=== PATIENT | male | born 1945 | race Hispanic/Latino ===

== ENCOUNTER 2018-04-10 14:36 | Inpatient (IN) | payer MEDICARE ==
[~2018-04-10 14:36] MED LIST: Heparin25000 units/250ml 0.45% NS BAG IV ONE
[2018-04-10 14:43] VITALS: BMI 30.1
[2018-04-10] MEDS ORDERED: Metoprolol Succinate 50 mg XL Tab PO STA (14:48)
--- NOTE | 2018-04-10 14:56 | C.PDOC ---
History Of Present Illness 72 year old male with a Hx of STEMI and HTN presents to the ER with a complaint of chest pain that began while he was getting his haircut. Patient left the [employer] and walked 4 blocks to his house where he took 8-10 81mg aspirin. The pain persisted so he went down and told people outside who called EMS. Patient was placed on a monitor by EMs and found to have an STEMI on his EKG which was faxed to me at 1425, Dr. Richards paged at 1427, patient arrived at 1437. Repeat EKG showed STEMI. Patient still with ongoing chest pain, Dr. lisa rodriguez. Time Seen by Provider: 04/10/18 14:45 Chief Complaint (Nursing): Chest Pain History Per: Patient History/Exam Limitations: no limitations Onset/Duration Of Symptoms: Hrs Current Symptoms Are (Timing): Still Present Associated Symptoms: denies: Nausea, Dyspnea, Diaphoresis, Syncope Modifying Factors: None Exacerbating Factors: None Alleviating Factors: None Recent travel outside of the [place]: No Past Medical History Reviewed: Historical Data, Nursing Documentation, Vital Signs - Medical History PMH: HTN Family History: States: Unknown Family Hx - Social History Hx Alcohol Use: No Hx Substance Use: No - Immunization History Hx Tetanus Toxoid Vaccination: No Hx Influenza Vaccination: No Hx Pneumococcal Vaccination: No Review Of Systems Except As Marked, All Systems Reviewed And Found Negative. Cardiovascular: Positive for: Chest Pain Physical Exam - Physical Exam Appears: Non-toxic Skin: Normal Color, Warm, Dry Head: Atraumatic, Normacephalic Eye(s): bilateral: Normal Inspection Oral Mucosa: Moist Neck: Normal, Supple Chest: Symmetrical, No Tenderness Cardiovascular: Rhythm Regular Respiratory: Normal Breath Sounds, No Rales, No Rhonchi, No Wheezing Gastrointestinal/Abdominal: Soft, No Tenderness Back: No CVA Tenderness Extremity: Normal ROM (x4) Neurological/Psych: Oriented x3, Normal Speech ED Course And Treatment ECG: Interpreted By Me, Viewed By Me ECG Rhythm: Sinus Rhythm ECG Interpretation: Normal Interpretation Of ECG: Normal intervals, normal axis, ST elevation at leads 2 3 avl with reciprocal at 2 3 4 consistent with inferior wall UT. Rate From EC Medical Decision Making Medical Decision Making: Crestor, heparin, and metoprolol administered as per Dr. Richards request. patient transferred to electroplating laborer. Disposition Discussed With : Gerald Richards Doctor Will See Patient In The: ED Counseled Patient/Family Regarding: Studies Performed, Diagnosis - Disposition Disposition: HOSPITALIZED Disposition Time: 14:56 Condition: CRITICAL Forms: [facility] (Irish) - Clinical Impression Clinical Impression: STEMI (ST elevation myocardial infarction) - Scribe Statement The provider has reviewed the documentation as recorded by the Scribe Michael Robert All medical record entries made by the Scribe were at my direction and personally dictated by me. I have reviewed the chart and agree that the record accurately reflects my personal performance of the history, physical exam, medical decision making, and the department course for this patient. I have also personally directed, reviewed, and agree with the discharge instructions and disposition.
[2018-04-10 15:00] LABS: BASO # 0.1 K/uL (0.0-0.2); BASO % 0.7 % (0.0-2.0); EOS # 0.2 K/uL (0.0-0.7); EOS % 2.2 % (0.0-4.0); HEMOGLOBIN 15.8 g/dL (12.0-18.0); LYMPH # 1.2 K/uL (1.0-4.3); LYMPH % 13.5 % (20.0-40.0); MEAN CELL VOLUME 90.9 fL (80.0-94.0); MEAN CORPUSCULAR HEMOGLOBIN 31.1 pg (27.0-31.0); MEAN CORPUSCULAR HGB CONC 34.2 g/dL (33.0-37.0); MEAN PLATELET VOLUME 7.3 fL (7.2-11.7); MONO # 0.7 K/uL (0.0-0.8); MONO % 7.2 % (0.0-10.0); NEUT # 6.9 K/uL (1.8-7.0); NEUT % 76.4 % (50.0-75.0); RBC 5.08 Mil/uL (4.40-5.90); RED CELL DISTRIBUTION WIDTH 13.8 % (11.5-14.5)
[2018-04-10] MEDS ORDERED: Midazolam 2 MG/2 ML VIAL ONE (15:00)
[2018-04-10] MEDS ORDERED: Lidocaine PF 2% (5 ml) Inj (For Cardiac Arrhy) ONE (15:01)
[2018-04-10] MEDS ORDERED: Iodixanol 320 MG/ML 200 ML BOTTLE IV ONE ×2 (15:02→15:03)
[2018-04-10 15:08] LABS: ALB/GLOB RATIO 1.5 (1.0-2.1); ALBUMIN 4.2 g/dL (3.5-5.0); ALT/SGPT 31 U/L (21-72); AST/SGOT 24 U/L (17-59); BLOOD UREA NITROGEN 21 mg/dL (9-20); CALCIUM 9.1 mg/dl (8.6-10.4); GFR NON-AFRICAN AMERICAN > 60
[2018-04-10 15:12] LABS: INR 1.2; PROTHROMBIN TIME 12.8 SECONDS (9.7-12.2)
--- NOTE | 2018-04-10 15:23 | RAD ---
HISTORY: chest pain COMPARISON: None available. TECHNIQUE: Chest, one view. FINDINGS: Examination markedly limited by habitus and hypoinflation. LUNGS: Mild pulmonary venous congestion versus vascular crowding due to hypoinflation. Please note that chest x-ray has limited sensitivity for the detection of pulmonary masses. PLEURA: No significant pleural effusion identified. No definite pneumothorax . CARDIOVASCULAR: Enlargement of the cardiomediastinal silhouette. Dense atherosclerotic calcifications. External defibrillator lead projects over the left medial lower chest/upper abdomen. OSSEOUS STRUCTURES: Osseous demineralization. Degenerative changes. VISUALIZED UPPER ABDOMEN: Unremarkable. OTHER FINDINGS: None. IMPRESSION: Limited study. Enlarged cardiomediastinal silhouette. Dense atherosclerotic calcifications. External defibrillator lead. Mild pulmonary venous congestion versus vascular crowding due to hypoinflation.
--- NOTE | 2018-04-10 15:41 | CP.PCM.PN ---
Addendum entered and electronically signed by Shayy Díaz DO 04/10/18 15:43: Correction: See physical exam Appears: Non-toxic, no acute distress, talking in full sentences, no respiratory distress Skin: Normal Color, Warm, Dry Head: Atraumatic, Normacephalic Eye(s): bilateral: Normal Inspection, EOMI, PERRL Oral Mucosa: Moist Neck: Normal, Supple, no JVD Chest: Symmetrical, No Tenderness, pain not reprodicible Cardiovascular: Rhythm Regular, S1/s2 no s3/s4 appreciated, no murmurs Respiratory: Normal Breath Sounds, No Rales, No Rhonchi, No Wheezing Gastrointestinal/Abdominal: Soft, No Tenderness, normal bowel sounds Back: No CVA Tenderness Extremity: Normal ROM (x4) Neurological/Psych: Oriented x3, Normal Speech, moving all extremities Original Note: <Shayy Díaz - Last Filed: 04/10/18 15:31> Subjective - Date & Time of Evaluation Date of Evaluation: 04/10/18 Time of Evaluation: 15:00 - Subjective Subjective: [facility] was called at 2:43 PM 72 year old male with a Hx of STEMI (10 years ago at [facility], said no stent) and HTN presents to the ER with a complaint of chest pain that began while he was getting his haircut around 12:30 PM. Patient states he "determined it wasn't an VA", so he left the [employer] shop and walked 4 blocks to his house where he took 8-10 81mg aspirin. He sat down and noticed that after 20 minutes the pain still hadn't resolved. He then went down and told people outside who called EMS. Patient was placed on a monitor by EMs and found to have an STEMI on his EKG which was faxed to the ER which activated code heart. Repeat EKG showed STEMI. Patient states he has associated nausea, diaphoresis and radiation of the chest pressure into his shoulder. PMHX - HTN, hyperlipidemia, bph?, VA Meds - Coreg 25mg PO BOD, Lipitor 80mg PO daily, ASA 81mg PO daily, Proscar 5mg PO daily, Derrous Sulfate 160mh PO daily, Enalapril 20mg PO BID VD3 daily, Omeprazole 20mg PO daily, Procardia 60mg PO daily VitB daily, Miralax 17gm PO daily prn, Plavix 75mg PO daily Allergies - NKDA, not allergic to contrast Surg - unknown Famhx - father had "heart problems" Social - Denies alcohol or drug use. Smoked 1ppd for 50 years, quit 4 years ago , lives alone PMD - Dr. Kavon Soriano Living Will - has one but did not bring today Code status - FULL code In the ER labs, EKG, chest X ray were done. Patient was loaded with Heparin. Per Dr. Richards, cardiology we were to bring patient up to lab aid and they would administer other medications as indicated. Patient was transported to lab aid where Dr. Richards was present. Patient will be placed in ICU bed 9 after the lab aid for further observation. Order to be placed by Dr. Richards. Patient to be admitted to medicine court liaison. Objective - Labs Labs: 04/10/18 14:52 04/10/18 14:52 PT 12.8 SECONDS (9.7-12.2) H 04/10/18 14:52 INR 1.2 04/10/18 14:52 APTT 35 SECONDS (21-34) H 04/10/18 14:52 <Stef Randle H - Last Filed: 04/10/18 16:27> Objective - Vital Signs/Intake and Output Vital Signs (last 24 hours): Temp Pulse Resp BP Pulse Ox 98 F 89 18 176/83 H 98 04/10/18 15:04 04/10/18 15:04 04/10/18 15:04 04/10/18 15:04 04/10/18 15:04 - Labs Labs: 04/10/18 14:52 04/10/18 14:52 PT 12.8 SECONDS (9.7-12.2) H 04/10/18 14:52 INR 1.2 04/10/18 14:52 APTT 35 SECONDS (21-34) H 04/10/18 14:52 Attending/Attestation - Attestation I have personally seen and examined this patient.: Yes I have fully participated in the care of the patient.: Yes I have reviewed all pertinent clinical information, including history, physical exam and plan: Yes Notes (Text): 04/10/18 16:27 Medical hospitalist: I reviewed the above note by the emergency medicine medical director and agree with the above note. I came down shortly thereafter consult patient while he was still in the emergency room waiting to go up to the cardiac Lobby Concierge. As reported above in the medical residents note the patient went for haircut a little bit afternoon time and at that time was a restrained to have sensations of chest pain however after leaving he went home where he attempted to take numerous 81 mg tablets of aspirin to see if this would help it did not distend prompted him to come to the emergency room where it was seen on EKG that he had a ST elevation in the inferior leads He had a heparin bolus, as well as a heparin drip given. Cardiology did not want to give Plavix/Brillinta dose as the patient was already taking Plavix. He was shortly thereafter brought up to the cardiac Lobby Concierge Thank you very much, Stef Randle
[2018-04-10] MEDS ORDERED: Amiodarone 150mg/3 ml vial ONE (15:44)
[2018-04-10 15:52] LABS: URINE BILIRUBIN NEGATIVE (NEGATIVE); URINE BLOOD NEGATIVE (NEGATIVE); URINE CLARITY Clear (Clear); URINE COLOR Straw (YELLOW); URINE GLUCOSE (UA) NORMAL (Normal); URINE LEUKOCYTE ESTERASE NEG Leu/uL (Negative); URINE PROTEIN NEGATIVE (NEGATIVE); URINE UROBILINOGEN NORMAL mg/dL (0.2-1.0)
[2018-04-10] MEDS ORDERED: Eptifibatide 20 mg/10mL Inj IVP ONE (16:07)
[2018-04-10] MEDS: Eptifibatide 20 mg/10mL Inj IVP ONE (16:20)
[2018-04-10] MEDS: Metoprolol Succinate 25 mg XL Tab PO SCH (17:39)
[2018-04-10] MEDS: Sodium Chloride 0.9% 1,000 ML IV SCH (17:41)
--- NOTE | 2018-04-10 18:29 | CP.PCM.CON ---
<Lakisha Hobson - Last Filed: 04/10/18 18:00> History of Present Illness - History of Present Illness History of Present Illness: ICU Consult note Patient is a 72 year old male with history of DC (10years ago), HTN, HLD, BPH who presents for midsternal chest pressure with radiation to both his arm that started at 12:30 while he was getting a haircut today. He reports associated diaphoresis, however denies nausea, vomiting, syncopal episodes. He states he went home and took a few ASA at home but called EMS after his chest pressure did not resolved. He states his prior DC started with pain in his right elbow radiating up to his chest. On arrival to ED, EKG revealed inferior wall DC with ST elevations in Leads 2, 3, AVL. Code Heart was called, Patient transferred to Cardiac drop crew laborer for emergent catheterization with Dr. Richards today. PMH: HTN, HLD, BPH, DC (10 years ago), arthritis PSH: carotid endarectomy 7 years ago, umbilical hernia, basal cell carcinoma removal on back Social hx: History of tobacco use for 50years x1ppd - quit 4 years ago, no ETOH or drug use. Lives by himself. Family history: Heart disease history in father Home meds: Plavix 75mg, Lipitor 80mg, Coreg 25mg, Enalapril 20mg, Nifedipine 60mg, Finasteride 5mg, Omeprazole 20mg, ASA 81mg, Iron with ferrous sulfate 65mg , B complex 500 IU, , Vit D5000 IU, Miralax Allergies: NKDA PMD: Dr. Adi Soriano Projection Engineer: in [place] Review of Systems - Constitutional Constitutional: absent: Chills, Fever - EENT Eyes: absent: Change in Vision Nose/Mouth/Throat: absent: Nasal Congestion - Cardiovascular Cardiovascular: absent: Chest Pain, Dyspnea - Respiratory Respiratory: absent: Cough, Dyspnea - Gastrointestinal Gastrointestinal: absent: Abdominal Pain, Nausea, Vomiting - Genitourinary Genitourinary: Difficulty Urinating (history of BPH). absent: Dysuria Past Patient History - Past Social History Smoking Status: Former Smoker - CARDIAC Hx Hypertension: Yes - PULMONARY Hx Respiratory Disorders: No - NEUROLOGICAL Hx Neurological Disorder: No - HEENT Hx HEENT Problems: Yes Hx Deafness: Yes Other/Comment: bilateral hearing loss - MUSCULOSKELETAL/RHEUMATOLOGICAL Hx Falls: Yes - PSYCHIATRIC Hx Substance Use: No - ANESTHESIA Hx Anesthesia: Yes Hx Anesthesia Reactions: No Hx Malignant Hyperthermia: No Has any member of the family had a problem w/ anesthesia?: No Meds Allergies/Adverse Reactions: Allergies Allergy/AdvReac Type Severity Reaction Status Date / Time No Known Allergies Allergy Verified 04/10/18 14:43 - Medications Medications: Current Medications Aspirin (Ecotrin) 81 mg PO DAILY [facility] Clopidogrel Bisulfate (Plavix) 75 mg PO DAILY [facility] Sodium Chloride (Sodium Chloride 0.9%) 1,000 mls @ 100 mls/hr IV .Q10H [facility] Last Admin: 04/10/18 17:41 Dose: 100 mls/hr Metoprolol Succinate (Toprol Xl) 25 mg PO DAILY [facility] Last Admin: 04/10/18 17:39 Dose: 25 mg Rosuvastatin Calcium (Crestor) 20 mg PO HS [facility] Physical Exam - Constitutional Appears: Non-toxic, No Acute Distress - Head Exam Head Exam: ATRAUMATIC, NORMOCEPHALIC - Eye Exam Eye Exam: EOMI Pupil Exam: PERRL - ENT Exam ENT Exam: Mucous Membranes Moist - Respiratory Exam Respiratory Exam: Clear to Auscultation Bilateral. absent: Rales, Rhonchi, Wheezes, Respiratory Distress - Cardiovascular Exam Cardiovascular Exam: REGULAR RHYTHM, +S1, +S2 - GI/Abdominal Exam GI & Abdominal Exam: Normal Bowel Sounds, Soft. absent: Tenderness - Extremities Exam Extremities exam: Positive for: pedal pulses present. Negative for: calf tenderness, pedal edema Additional comments: Right groin bandage intact with no evidence of bleeding - Neurological Exam Neurological exam: Alert, Oriented x3 - Skin Skin Exam: Dry, Intact, Warm Results - Vital Signs Recent Vital Signs: Last Vital Signs Temp 98 F 04/10/18 15:04 Pulse 89 04/10/18 15:04 Resp 18 04/10/18 15:04 BP 176/83 H 04/10/18 15:04 Pulse Ox 98 04/10/18 15:04 - Labs Result Diagrams: 04/10/18 14:52 04/10/18 14:52 Labs: Laboratory Results - last 24 hr 04/10/18 04/10/18 04/10/18 14:52 14:52 14:52 WBC 9.0 RBC 5.08 Hgb 15.8 Hct 46.2 MCV 90.9 MCH 31.1 H MCHC 34.2 RDW 13.8 Plt Count 265 MPV 7.3 Neut % (Auto) 76.4 H Lymph % (Auto) 13.5 L [place] % (Auto) 7.2 Eos % (Auto) 2.2 Baso % (Auto) 0.7 Neut # (Auto) 6.9 Lymph # (Auto) 1.2 [place] # (Auto) 0.7 Eos # (Auto) 0.2 Baso # (Auto) 0.1 PT 12.8 H INR 1.2 APTT 35 H Sodium 142 Potassium 3.4 L Chloride 106 Carbon Dioxide 22 Anion Gap 18 BUN 21 H Creatinine 0.8 Est GFR ( Amer) > 60 Est GFR (Non-Af Amer) > 60 Random Glucose 177 H Calcium 9.1 Total Bilirubin 1.3 AST 24 ALT 31 Alkaline Phosphatase 97 Troponin I Total Protein 6.9 Albumin 4.2 Globulin 2.8 Albumin/Globulin Ratio 1.5 Urine Color Urine Clarity Urine pH Ur Specific [place] Urine Protein Urine Glucose (UA) Urine Ketones Urine Blood Urine Nitrate Urine Bilirubin Urine Urobilinogen Ur Leukocyte Esterase Urine RBC (Auto) Blood Type Antibody Screen 04/10/18 04/10/18 04/10/18 14:52 14:52 15:31 WBC RBC Hgb Hct MCV MCH MCHC RDW Plt Count MPV Neut % (Auto) Lymph % (Auto) [place] % (Auto) Eos % (Auto) Baso % (Auto) Neut # (Auto) Lymph # (Auto) [place] # (Auto) Eos # (Auto) Baso # (Auto) PT INR APTT Sodium Potassium Chloride Carbon Dioxide Anion Gap BUN Creatinine Est GFR ( Amer) Est GFR (Non-Af Amer) Random Glucose Calcium Total Bilirubin AST ALT Alkaline Phosphatase Troponin I 0.0130 Total Protein Albumin Globulin Albumin/Globulin Ratio Urine Color Straw Urine Clarity Clear Urine pH 7.0 Ur Specific [place] 1.008 Urine Protein Negative Urine Glucose (UA) Normal Urine Ketones 1+ H Urine Blood Negative Urine Nitrate Negative Urine Bilirubin Negative Urine Urobilinogen Normal Ur Leukocyte Esterase Neg Urine RBC (Auto) < 1 Blood Type O POSITIVE Antibody Screen Negative Assessment & Plan - Assessment and Plan (Free Text) Assessment: 72 year old male with history of DC (10years ago), HTN, HLD, BPH who presents for midsternal chest pressure with radiation to both his arm with associated diaphoresis. He states he went home and took a few ASA at home but called EMS after his chest pressure did not resolved.On arrival to ED, EKG revealed inferior wall DC with ST elevations in Leads 2, 3, AVL. Code Heart was called, Patient transferred to Cardiac drop crew laborer for emergent catheterization with Dr. Richards today. Plan: Neuro: Alert and oriented x3 Cardiovascular Patient received Heparin 5000 units bolus, Toprol XL 50mg PO, Crestor 40mg PO in ED Patient received in cardiac drop crew laborer: Amiodarone 150mg IV, Integrillin x2, Heparin 3000 units IU Stent placed in mid RCA by Dr. Richards Plavix 300mg PO today, Plavix 75mg daily ASA 81mg PO daily Toprol XL 25mg PO Crestor 20mg PO Dr. Richards on board Pulmonary Oxygenating well on RA GI Pepcid 20mg Heart healthy diet Renal NS @ 100cc/hr IV I&Os Endo Maintain euglycemia ID no evidence of infection no abx indicated at this time Heme H/H stable no evidence of bleeding Code status: Full code Case discussed with Dr. Gurrola <Eliecer Gurrola - Last Filed: 04/10/18 19:07> Meds - Medications Medications: Current Medications Aspirin (Ecotrin) 81 mg PO DAILY [facility] Clopidogrel Bisulfate (Plavix) 75 mg PO DAILY [facility] Famotidine (Pepcid) 20 mg PO DAILY [facility] Sodium Chloride (Sodium Chloride 0.9%) 1,000 mls @ 100 mls/hr IV .Q10H [facility] Last Admin: 04/10/18 17:41 Dose: 100 mls/hr Metoprolol Succinate (Toprol Xl) 25 mg PO DAILY [facility] Last Admin: 04/10/18 17:39 Dose: 25 mg Rosuvastatin Calcium (Crestor) 20 mg PO HS [facility] Results - Vital Signs Recent Vital Signs: Last Vital Signs Temp 98 F 04/10/18 15:04 Pulse 89 04/10/18 15:04 Resp 18 04/10/18 15:04 BP 176/83 H 04/10/18 15:04 Pulse Ox 98 04/10/18 15:04 - Labs Result Diagrams: 04/10/18 14:52 04/10/18 14:52 Labs: Laboratory Results - last 24 hr 04/10/18 04/10/18 04/10/18 14:52 14:52 14:52 WBC 9.0 RBC 5.08 Hgb 15.8 Hct 46.2 MCV 90.9 MCH 31.1 H MCHC 34.2 RDW 13.8 Plt Count 265 MPV 7.3 Neut % (Auto) 76.4 H Lymph % (Auto) 13.5 L [place] % (Auto) 7.2 Eos % (Auto) 2.2 Baso % (Auto) 0.7 Neut # (Auto) 6.9 Lymph # (Auto) 1.2 [place] # (Auto) 0.7 Eos # (Auto) 0.2 Baso # (Auto) 0.1 PT 12.8 H INR 1.2 APTT 35 H Sodium 142 Potassium 3.4 L Chloride 106 Carbon Dioxide 22 Anion Gap 18 BUN 21 H Creatinine 0.8 Est GFR ( Amer) > 60 Est GFR (Non-Af Amer) > 60 Random Glucose 177 H Calcium 9.1 Total Bilirubin 1.3 AST 24 ALT 31 Alkaline Phosphatase 97 Total Creatine Kinase Troponin I Total Protein 6.9 Albumin 4.2 Globulin 2.8 Albumin/Globulin Ratio 1.5 Urine Color Urine Clarity Urine pH Ur Specific [place] Urine Protein Urine Glucose (UA) Urine Ketones Urine Blood Urine Nitrate Urine Bilirubin Urine Urobilinogen Ur Leukocyte Esterase Urine RBC (Auto) Blood Type Antibody Screen 04/10/18 04/10/18 04/10/18 14:52 14:52 15:31 WBC RBC Hgb Hct MCV MCH MCHC RDW Plt Count MPV Neut % (Auto) Lymph % (Auto) [place] % (Auto) Eos % (Auto) Baso % (Auto) Neut # (Auto) Lymph # (Auto) [place] # (Auto) Eos # (Auto) Baso # (Auto) PT INR APTT Sodium Potassium Chloride Carbon Dioxide Anion Gap BUN Creatinine Est GFR ( Amer) Est GFR (Non-Af Amer) Random Glucose Calcium Total Bilirubin AST ALT Alkaline Phosphatase Total Creatine Kinase Troponin I 0.0130 Total Protein Albumin Globulin Albumin/Globulin Ratio Urine Color Straw Urine Clarity Clear Urine pH 7.0 Ur Specific [place] 1.008 Urine Protein Negative Urine Glucose (UA) Normal Urine Ketones 1+ H Urine Blood Negative Urine Nitrate Negative Urine Bilirubin Negative Urine Urobilinogen Normal Ur Leukocyte Esterase Neg Urine RBC (Auto) < 1 Blood Type O POSITIVE Antibody Screen Negative 04/10/18 17:48 WBC RBC Hgb Hct MCV MCH MCHC RDW Plt Count MPV Neut % (Auto) Lymph % (Auto) [place] % (Auto) Eos % (Auto) Baso % (Auto) Neut # (Auto) Lymph # (Auto) [place] # (Auto) Eos # (Auto) Baso # (Auto) PT INR APTT Sodium Potassium Chloride Carbon Dioxide Anion Gap BUN Creatinine Est GFR ( Amer) Est GFR (Non-Af Amer) Random Glucose Calcium Total Bilirubin AST ALT Alkaline Phosphatase Total Creatine Kinase 718 H Troponin I Total Protein Albumin Globulin Albumin/Globulin Ratio Urine Color Urine Clarity Urine pH Ur Specific [place] Urine Protein Urine Glucose (UA) Urine Ketones Urine Blood Urine Nitrate Urine Bilirubin Urine Urobilinogen Ur Leukocyte Esterase Urine RBC (Auto) Blood Type Antibody Screen Attending/Attestation - Attestation I have personally seen and examined this patient.: Yes I have fully participated in the care of the patient.: Yes I have reviewed all pertinent clinical information: Yes Notes (Text): 04/10/18 19:06 Patient seen and examined 72-year-old malestatus post cardiac cath and RCA stent placement for ST elevation DC ICU observation Plavix and aspirin Beta blockers discussed with cardiology
[2018-04-10 19:15] LABS: CK-MB 69.8 ng/mL (0.0-3.38)
[2018-04-11] MEDS: Sodium Chloride 0.9% 1,000 ML IV SCH ×2 (03:49→13:32)
--- NOTE | 2018-04-11 04:23 | CARDCATH ---
PROCEDURE DATE: 04/10/2018 INDICATIONS: August Ontiveros is a 72-year-old male who presented to [facility] with complaints of chest pain, noted to have ST elevation on the field EKG, was brought emergently to the labor delivery rn for evaluation and treatment of ST elevation CT with symptom onset 3 hours prior to presentation. PROCEDURES PERFORMED: Left heart catheterization with selective left and right coronary angiogram, 6-[place] right femoral arterial access, PTCA stenting of mid RCA 100% occlusion, deployment of 3 x 23 Xience drug-eluting stent, lesion reduction from 100% down to 0% with improvement in flow of VARUN-0 to VARUN-3, 6-[place] right femoral arterial access, Angio-Seal for hemostasis TECHNIQUES OF PROCEDURE: After obtaining informed consent, the patient was brought to the cardiac cath suite in post-absorptive and non-sedative state. The patient was prepped and draped in the usual sterile fashion, 2% lidocaine was used for infiltration of anesthesia. Using modified Seldinger technique, a 6-[place] sheath was introduced into the right femoral artery. Subsequently, over a J-wire, JR4 diagnostic catheters were used to engage the left and right coronary systems. Angiograms were obtained in different orthogonal views. Subsequently, JR4 guiding catheter was used to engage the right coronary artery. Because of severe distal iliac tortuosity and calcification, there was minimal torquing of the RCA catheter. At this point, 6-[place] sheath was initially exchanged to a 6-[place] 23 cm, and subsequently, used a 6-[place] 45 cm sheath to help with the distal iliac tortuosity. At this point, a JR4 guiding catheter was used to engage the right coronary system, and angiogram was obtained identifying the mid RCA 100% occlusion. Subsequently, to cross the lesion which restored the flow. At this point, the balloon was used, predilated with a 3 x 15 balloon. Subsequently, the lesion was stented with a 3 x 23 Xience drug-eluting stent with lesion reduction down to 0% VARUN-3 flow. Angiography findings of the left coronary system, left main large size vessel bifurcates into LAD and left circumflex coronary artery. LAD has a proximal calcified 75% stenosis, mid LAD 40% gives off two small diagonal branches. Left circumflex runs in the AV groove; has a mid 35% stenosis, gives off two small sized obtuse marginal branches. IMPRESSION: Successful percutaneous transluminal coronary angioplasty stenting of mid right coronary artery 100% occlusion, deployment of drug-eluting stent. Mild left ventricular systolic dysfunction, ejection fraction of 45%, inferior wall hypokinesis, elevated end-diastolic pressure. RECOMMENDATIONS: The patient is to be transferred to the ICU. Continue the patient on dual antiplatelet therapy, aspirin, statin, beta blockers, nitrates, ASHLYN inhibitors. Follow the renal function. Get echocardiogram. Possibly discharge to home in 24 to 48 hours, depending on clinic courses. Gerald Richards MD
[2018-04-11 06:31] LABS: BASO # 0.1 K/uL (0.0-0.2); BASO % 0.5 % (0.0-2.0); EOS % 0.3 % (0.0-4.0); HEMOGLOBIN 14.4 g/dL (12.0-18.0); LYMPH % 9.1 % (20.0-40.0); MEAN CELL VOLUME 91.6 fL (80.0-94.0); MEAN CORPUSCULAR HEMOGLOBIN 31.1 pg (27.0-31.0); MEAN CORPUSCULAR HGB CONC 33.9 g/dL (33.0-37.0); MEAN PLATELET VOLUME 8.6 fL (7.2-11.7); MONO % 8.7 % (0.0-10.0); NEUT # 8.9 K/uL (1.8-7.0); NEUT % 81.4 % (50.0-75.0); NRBC % 0.2 % (0.0-2.0); PLATELET COUNT 69 K/uL (130-400); RBC 4.63 Mil/uL (4.40-5.90); RED CELL DISTRIBUTION WIDTH 13.7 % (11.5-14.5); WHITE BLOOD COUNT 10.9 K/uL (4.8-10.8)
[2018-04-11 06:46] LABS: ALB/GLOB RATIO 1.3 (1.0-2.1); ALBUMIN 3.5 g/dL (3.5-5.0); ALT/SGPT 48 U/L (21-72); AST/SGOT 186 U/L (17-59); BLOOD UREA NITROGEN 23 mg/dL (9-20); CALCIUM 8.5 mg/dl (8.6-10.4); GFR NON-AFRICAN AMERICAN > 60
[2018-04-11] MEDS ORDERED: Potassium Chloride 20 mEq ER Tab PO ONE (08:00)
[2018-04-11 08:40] LABS: BANDS 1 % (0-2); LYMPHOCYTE 10 % (20-40); MONOCYTE 10 % (0-10); NEUTROPHIL 79 % (50-75); PLATELET ESTIMATE DECREASED (NORMAL); TOTAL CELLS COUNTED 100
[2018-04-11 08:41] LABS: BURR CELLS SLIGHT; OVALOCYTES SLIGHT
[2018-04-11] MEDS: Metoprolol Succinate 25 mg XL Tab PO SCH (09:09)
--- NOTE | 2018-04-11 10:35 | CP.PCM.PN ---
Subjective - Date & Time of Evaluation Date of Evaluation: 04/11/18 Time of Evaluation: 10:35 - Subjective Subjective: CARDIOLOGY PROGRESS NOTE FOR DR. AZ Gan D.O. PGY-1 Pt seen and examined at bedside this. Pt is POD1 s/p cardiac cath with RCA stent placement. He reports he had chest achiness and back pain overnight that has resolved this am. He is tolerating his diet, ambulating well and conversing without shortness of breath or discomfort. He denies fevers, chills, nausea, vomiting, chest pain, palpitations, diophoresis, shortness of breath, constipation, diarrhea. Objective - Vital Signs/Intake and Output Vital Signs (last 24 hours): Temp Pulse Resp BP Pulse Ox 97.6 F 105 H 14 154/60 H 98 04/11/18 08:00 04/11/18 10:00 04/11/18 10:00 04/11/18 09:45 04/11/18 10:00 Intake and Output: 04/11/18 04/11/18 06:59 18:59 Intake Total 1500 650 Output Total 450 100 Balance 1050 550 - Medications Medications: Current Medications Aspirin (Ecotrin) 81 mg PO DAILY [facility] Last Admin: 04/11/18 09:08 Dose: 81 mg Clopidogrel Bisulfate (Plavix) 75 mg PO DAILY [facility] Last Admin: 04/11/18 09:09 Dose: 75 mg Enalapril Maleate (Vasotec) 20 mg PO BID [facility] Famotidine (Pepcid) 20 mg PO DAILY [facility] Last Admin: 04/11/18 09:08 Dose: 20 mg Sodium Chloride (Sodium Chloride 0.9%) 1,000 mls @ 100 mls/hr IV .Q10H [facility] Last Admin: 04/11/18 03:49 Dose: 100 mls/hr Metoprolol Succinate (Toprol Xl) 25 mg PO DAILY [facility] Last Admin: 04/11/18 09:09 Dose: 25 mg Nitroglycerin (Nitrostat Sl Tab) 0.4 mg SL Q5M PRN PRN Reason: Pain, moderate (4-7) Rosuvastatin Calcium (Crestor) 20 mg PO HS [facility] Last Admin: 04/10/18 22:14 Dose: 20 mg - Labs Labs: 04/11/18 06:17 09/20/18 06:17 PT 12.8 SECONDS (9.7-12.2) H 04/10/18 14:52 INR 1.2 04/10/18 14:52 APTT 35 SECONDS (21-34) H 04/10/18 14:52 - Constitutional Appears: Well, Non-toxic, No Acute Distress - Head Exam Head Exam: ATRAUMATIC, NORMAL INSPECTION - Eye Exam Eye Exam: EOMI, Normal appearance - ENT Exam ENT Exam: Mucous Membranes Moist, Normal Exam - Neck Exam Neck Exam: Normal Inspection - Cardiovascular Exam Cardiovascular Exam: REGULAR RHYTHM, +S1, +S2 - GI/Abdominal Exam GI & Abdominal Exam: Soft. absent: Tenderness - Extremities Exam Extremities Exam: Normal Inspection. absent: Calf Tenderness - Back Exam Back Exam: NORMAL INSPECTION - Neurological Exam Neurological Exam: Alert, Oriented x3 - Psychiatric Exam Psychiatric exam: Normal Affect, Normal Mood - Skin Skin Exam: Dry, Intact, Warm Assessment and Plan - Assessment and Plan (Free Text) Assessment: 72 y/o M with pmhx of [place] (10years ago), HTN, HLD, BPH admitted for STEMI. Pt was taken to cardiac geophysical laboratory chief by Dr. Richards and found to have 100% occlusion of R Coronary artery. Drug eluting stent was placed, with caodaism of flow. Pt sent to ICU for close observation. Plan: STEMI Continue aspirin Continue plavix HTN Continue metoprolol Continue enalapril HLD Continue rosuvastatin Case seen, examined and discussed with attending physician, Dr. Richards. Further recs per him.
--- NOTE | 2018-04-11 16:17 | CARD ---
APPROVED REPORT Date of service: 04/11/2018 EXAM: Two-dimensional and M-mode echocardiogram with Doppler and color Doppler. Other Information Quality : TDSRhythm : INDICATION Status/Post MA Surgery/Intervention Status/Post Intervention: Stent RISK FACTORS Hypertension Hyperlipidemia 2D DIMENSIONS IVSd1.8 (0.7-1.1cm)Aortic Root (2D)3.8 (2.0-3.7cm) LVDd4.6 (3.9-5.9cm)PWd1.4 (0.7-1.1cm) LVDs3.6 (2.5-4.0cm)FS (%) 21.6 % LVEF (%)48.0 (>50%) M-Mode DIMENSIONS Left Atrium (MM)3.52 (2.5-4.0cm)IVSd1.40 (0.7-1.1cm) Aortic Root3.55 (2.2-3.7cm)LVDd6.05 (4.0-5.6cm) Aortic Cusp Exc.2.02 (1.5-2.0cm)PWd1.55 (0.7-1.1cm) FS (%) 32 %LVDs4.13 (2.0-3.8cm) LVEF (%)50 (>50%) Mitral Valve MV E Fskcyxte32.2cm/sMV A Jhaizklt07.7cm/sE/A ratio0.8 PISA0.69 cm TDI E/Lateral E'0.0E/Medial E'0.0 Tricuspid Valve TR Peak [id number]/sTR Peak [id number] LEFT VENTRICLE The left ventricle is normal size. There is moderate concentric left ventricular hypertrophy. The systolic function is mildly impaired. Infero-lateral hypokinesis Transmitral Doppler flow pattern is Grade I-abnormal relaxation pattern. Cannot rule out thrombus in left Ventricle. RIGHT VENTRICLE The right ventricle is normal size. There is normal right ventricular wall thickness. The right ventricular systolic function is normal. ATRIA The left atrium size is normal. The right atrium size is normal. AORTIC VALVE The aortic valve is moderately thickened. No aortic regurgitation is present. There is no aortic valvular stenosis. MITRAL VALVE The mitral valve is moderately thickened. There is no mitral valve stenosis. Mitral regurgitation is mild. TRICUSPID VALVE The tricuspid valve is normal in structure. There is trace tricuspid regurgitation. PULMONIC VALVE The pulmonary valve is normal in structure. There is no pulmonic valvular regurgitation. GREAT VESSELS The aortic root is mildly enlarged. The IVC was not visualized. PERICARDIAL EFFUSION There is no pericardial effusion. <Conclusion> The left ventricle is normal size. There is moderate concentric left ventricular hypertrophy. The systolic function is mildly impaired. Infero-lateral hypokinesis Transmitral Doppler flow pattern is Grade I-abnormal relaxation pattern. Cannot rule out thrombus in left Ventricle. Mitral regurgitation is mild.
--- NOTE | 2018-04-11 21:43 | CARD ---
APPROVED REPORT Date of service: 04/10/2018 EKG Measurement Heart [id number] <Conclusion> Normal sinus rhythm Left axis deviation Inferior infarct, age undetermined Abnormal ECG
--- NOTE | 2018-04-11 21:44 | CARD ---
APPROVED REPORT Date of service: 04/10/2018 EKG Measurement Heart [id number] <Conclusion> Sinus rhythm with occasional premature ventricular complexes Inferior-posterior infarct, possibly acute T wave abnormality, consider lateral ischemia ACUTE ND / STEMI Consider right ventricular involvement in acute inferior infarct Abnormal ECG
[2018-04-12 07:22] LABS: BASO # 0.1 K/uL (0.0-0.2); BASO % 0.8 % (0.0-2.0); EOS # 0.3 K/uL (0.0-0.7); EOS % 3.7 % (0.0-4.0); LYMPH % 21.9 % (20.0-40.0); MEAN CELL VOLUME 90.8 fL (80.0-94.0); MEAN CORPUSCULAR HEMOGLOBIN 31.7 pg (27.0-31.0); MEAN CORPUSCULAR HGB CONC 34.9 g/dL (33.0-37.0); MEAN PLATELET VOLUME 8.7 fL (7.2-11.7); MONO # 0.9 K/uL (0.0-0.8); MONO % 10.1 % (0.0-10.0); NEUT # 5.9 K/uL (1.8-7.0); NEUT % 63.5 % (50.0-75.0); RBC 4.1 Mil/uL (4.40-5.90); RED CELL DISTRIBUTION WIDTH 14.1 % (11.5-14.5); WHITE BLOOD COUNT 9.3 K/uL (4.8-10.8)
[2018-04-12 07:48] LABS: ALB/GLOB RATIO 1.3 (1.0-2.1); ALBUMIN 2.9 g/dL (3.5-5.0); ALT/SGPT 39 U/L (21-72); AST/SGOT 73 U/L (17-59); BLOOD UREA NITROGEN 20 mg/dL (9-20); CALCIUM 8.6 mg/dl (8.6-10.4); GFR NON-AFRICAN AMERICAN > 60
[2018-04-12] MEDS: Metoprolol Succinate 25 mg XL Tab PO SCH (09:45)
[2018-04-13 07:43] LABS: BASO # 0.1 K/uL (0.0-0.2); BASO % 0.8 % (0.0-2.0); EOS # 0.6 K/uL (0.0-0.7); EOS % 5.7 % (0.0-4.0); HEMOGLOBIN 13.6 g/dL (12.0-18.0); LYMPH # 2.1 K/uL (1.0-4.3); LYMPH % 21.2 % (20.0-40.0); MEAN CELL VOLUME 90.6 fL (80.0-94.0); MEAN CORPUSCULAR HEMOGLOBIN 30.7 pg (27.0-31.0); MEAN PLATELET VOLUME 8.1 fL (7.2-11.7); MONO % 10.1 % (0.0-10.0); NEUT # 6.3 K/uL (1.8-7.0); NEUT % 62.2 % (50.0-75.0); RBC 4.41 Mil/uL (4.40-5.90); RED CELL DISTRIBUTION WIDTH 14.1 % (11.5-14.5); WHITE BLOOD COUNT 10.1 K/uL (4.8-10.8)
[2018-04-13 08:05] LABS: ALB/GLOB RATIO 1.4 (1.0-2.1); ALBUMIN 3.3 g/dL (3.5-5.0); ALT/SGPT 35 U/L (21-72); AST/SGOT 35 U/L (17-59); BLOOD UREA NITROGEN 16 mg/dL (9-20); CALCIUM 8.7 mg/dl (8.6-10.4); GFR NON-AFRICAN AMERICAN > 60
[2018-04-13] MEDS: Metoprolol Succinate 25 mg XL Tab PO SCH (09:21)
[2018-04-14 08:11] LABS: BASO % 0.4 % (0.0-2.0); EOS # 0.6 K/uL (0.0-0.7); EOS % 6.3 % (0.0-4.0); HEMOGLOBIN 13.7 g/dL (12.0-18.0); LYMPH # 1.6 K/uL (1.0-4.3); LYMPH % 17.4 % (20.0-40.0); MEAN CELL VOLUME 89.9 fL (80.0-94.0); MEAN CORPUSCULAR HEMOGLOBIN 31.6 pg (27.0-31.0); MEAN CORPUSCULAR HGB CONC 35.1 g/dL (33.0-37.0); MEAN PLATELET VOLUME 8.5 fL (7.2-11.7); NEUT # 5.9 K/uL (1.8-7.0); NEUT % 64.9 % (50.0-75.0); RBC 4.33 Mil/uL (4.40-5.90); RED CELL DISTRIBUTION WIDTH 13.8 % (11.5-14.5); WHITE BLOOD COUNT 9.1 K/uL (4.8-10.8)
[2018-04-14 08:26] LABS: ALB/GLOB RATIO 1.3 (1.0-2.1); ALBUMIN 3.1 g/dL (3.5-5.0); ALT/SGPT 27 U/L (21-72); AST/SGOT 22 U/L (17-59); BLOOD UREA NITROGEN 16 mg/dL (9-20); CALCIUM 8.8 mg/dl (8.6-10.4); GFR NON-AFRICAN AMERICAN > 60
[2018-04-14] MEDS: Metoprolol Succinate 25 mg XL Tab PO SCH (09:36)
[2018-04-15 08:25] LABS: BASO # 0.1 K/uL (0.0-0.2); BASO % 0.9 % (0.0-2.0); EOS # 0.5 K/uL (0.0-0.7); EOS % 5.3 % (0.0-4.0); HEMOGLOBIN 13.9 g/dL (12.0-18.0); LYMPH # 1.5 K/uL (1.0-4.3); LYMPH % 14.3 % (20.0-40.0); MEAN CELL VOLUME 90.9 fL (80.0-94.0); MEAN CORPUSCULAR HGB CONC 35.2 g/dL (33.0-37.0); MEAN PLATELET VOLUME 7.9 fL (7.2-11.7); MONO # 1.1 K/uL (0.0-0.8); NEUT % 68.5 % (50.0-75.0); RBC 4.35 Mil/uL (4.40-5.90); RED CELL DISTRIBUTION WIDTH 13.8 % (11.5-14.5); WHITE BLOOD COUNT 10.3 K/uL (4.8-10.8)
[2018-04-15 08:46] LABS: ALB/GLOB RATIO 1.3 (1.0-2.1); ALBUMIN 3.5 g/dL (3.5-5.0); ALT/SGPT 29 U/L (21-72); AST/SGOT 18 U/L (17-59); BLOOD UREA NITROGEN 17 mg/dL (9-20); CALCIUM 8.8 mg/dl (8.6-10.4); GFR NON-AFRICAN AMERICAN > 60
[2018-04-15] MEDS: Metoprolol Succinate 25 mg XL Tab PO SCH (09:40)
--- NOTE | 2018-04-15 16:13 | CP.PCM.PN ---
Subjective - Date & Time of Evaluation Date of Evaluation: 04/15/18 Time of Evaluation: 16:09 - Subjective Subjective: Cardiology Progress Note Asif Galan, PGY-[address] Richards Patient seen and examined today. No acute events overnight. Patient is resting comfortably and offers no complaints at this time. He admits to minimal SOB with exertion and denies CP. He received RCA stent on 04/10, currently POD #5. He is tolerating diet and ambulating well. Objective - Vital Signs/Intake and Output Vital Signs (last 24 hours): Temp Pulse Resp BP Pulse Ox 98.3 F 69 18 145/82 97 04/15/18 07:25 04/15/18 07:25 04/15/18 07:25 04/15/18 09:40 04/15/18 07:25 Intake and Output: 04/15/18 04/15/18 06:59 18:59 Intake Total 520 Balance 520 - Medications Medications: Current Medications Aspirin (Ecotrin) 81 mg PO DAILY [facility] Last Admin: 04/15/18 09:40 Dose: 81 mg Clopidogrel Bisulfate (Plavix) 75 mg PO DAILY [facility] Last Admin: 04/15/18 09:40 Dose: 75 mg Enalapril Maleate (Vasotec) 20 mg PO BID [facility] Last Admin: 04/15/18 09:40 Dose: 20 mg Famotidine (Pepcid) 20 mg PO DAILY [facility] Last Admin: 04/15/18 09:40 Dose: 20 mg Metoprolol Succinate (Toprol Xl) 25 mg PO DAILY [facility] Last Admin: 04/15/18 09:40 Dose: 25 mg Nitroglycerin (Nitrostat Sl Tab) 0.4 mg SL Q5M PRN PRN Reason: Pain, moderate (4-7) Rosuvastatin Calcium (Crestor) 10 mg PO [facility] Last Admin: 04/14/18 22:17 Dose: 10 mg - Labs Labs: 04/15/18 08:16 04/15/18 08:16 PT 12.8 SECONDS (9.7-12.2) H 04/10/18 14:52 INR 1.2 04/10/18 14:52 APTT 35 SECONDS (21-34) H 04/10/18 14:52 - Constitutional Appears: No Acute Distress - Head Exam Head Exam: ATRAUMATIC, NORMAL INSPECTION - Eye Exam Eye Exam: EOMI Pupil Exam: PERRL - ENT Exam ENT Exam: Mucous Membranes Moist - Respiratory Exam Respiratory Exam: Clear to Ausculation Bilateral. absent: Respiratory Distress - Cardiovascular Exam Cardiovascular Exam: REGULAR RHYTHM, +S1, +S2 - GI/Abdominal Exam GI & Abdominal Exam: Normal Bowel Sounds. absent: Guarding, Rigid - Extremities Exam Extremities Exam: Normal Inspection. absent: Calf Tenderness - Neurological Exam Neurological Exam: Alert, Awake, Oriented x3 - Skin Skin Exam: Normal Color, Warm Assessment and Plan - Assessment and Plan (Free Text) Assessment: This is a 72 year old male with PMH of HTN, BPH, and [place] presenting to hospital with STEMI s/p stent placement in RCA on 04/10 after being found to have 100% occlusion of the RCA. Plan: STEMI s/p RCA stent placement -drug eluding stent placed on 04/10 -continue aspirin 81mg -continue plavix 75mg Hx HLD -Continue crestor 10mg Hx HTN -Continue toprol 25mg -Continue vasotec 20mg BID Further recommendations per Dr. Richards
[2018-04-15 16:33] VITALS: RESP 20
[2018-04-16] MEDS: Metoprolol Succinate 25 mg XL Tab PO SCH (09:36)
--- NOTE | 2018-04-16 16:38 | CP.PCM.PN ---
Subjective - Date & Time of Evaluation Date of Evaluation: 04/16/18 Time of Evaluation: 16:37 - Subjective Subjective: Cardiology Progress Note Asif Galan, PGY-[address] Richards Patient seen and examined today. No acute events overnight. Patient is resting comfortably and offers no complaints at this time. Will attempt stress test tomorrow at [facility]. Objective - Vital Signs/Intake and Output Vital Signs (last 24 hours): Temp Pulse Resp BP Pulse Ox 97.1 F L 80 20 176/93 H 98 04/16/18 15:00 04/16/18 15:00 04/16/18 15:00 04/16/18 15:00 04/16/18 15:00 Intake and Output: 04/16/18 04/16/18 06:59 18:59 Intake Total 120 500 Balance 120 500 - Medications Medications: Current Medications Aspirin (Ecotrin) 81 mg PO DAILY [facility] Last Admin: 04/16/18 09:28 Dose: 81 mg Bacitracin (Bacitracin) 0 gm TOP BID [facility] Clopidogrel Bisulfate (Plavix) 75 mg PO DAILY [facility] Last Admin: 04/16/18 09:35 Dose: 75 mg Enalapril Maleate (Vasotec) 20 mg PO BID [facility] Last Admin: 04/16/18 09:35 Dose: 20 mg Famotidine (Pepcid) 20 mg PO DAILY [facility] Last Admin: 04/16/18 09:28 Dose: 20 mg Metoprolol Succinate (Toprol Xl) 25 mg PO DAILY [facility] Last Admin: 04/16/18 09:36 Dose: 25 mg Nitroglycerin (Nitrostat Sl Tab) 0.4 mg SL Q5M PRN PRN Reason: Pain, moderate (4-7) Rosuvastatin Calcium (Crestor) 10 mg PO HS [facility] Last Admin: 04/15/18 23:43 Dose: 10 mg - Labs Labs: 04/15/18 08:16 04/15/18 08:16 PT 12.8 SECONDS (9.7-12.2) H 04/10/18 14:52 INR 1.2 04/10/18 14:52 APTT 35 SECONDS (21-34) H 04/10/18 14:52 - Constitutional Appears: No Acute Distress - Head Exam Head Exam: ATRAUMATIC, NORMAL INSPECTION - Eye Exam Eye Exam: EOMI Pupil Exam: PERRL - Respiratory Exam Respiratory Exam: Clear to Ausculation Bilateral. absent: Respiratory Distress - Cardiovascular Exam Cardiovascular Exam: REGULAR RHYTHM, +S1, +S2 - GI/Abdominal Exam GI & Abdominal Exam: Normal Bowel Sounds. absent: Guarding, Rigid - Extremities Exam Extremities Exam: Normal Inspection. absent: Calf Tenderness - Neurological Exam Neurological Exam: Alert, Awake - Skin Skin Exam: Normal Color, Warm Assessment and Plan - Assessment and Plan (Free Text) Assessment: This is a 72 year old male with PMH of HTN, BPH, and [place] presenting to hospital with STEMI s/p stent placement in RCA on 04/10 after being found to have 100% occlusion of the RCA. Plan: STEMI s/p RCA stent placement -will attempt stress test tomorrow at [facility] -drug eluding stent placed on 04/10 -continue plavix 75mg -continue aspirin 81mg Hx HTN -Continue toprol 25mg -Continue vasotec 20mg BID Hx HLD -Continue crestor 10mg Further recommendations per Dr. Richards
[2018-04-16] MEDS: Bacitracin Ointment 30 GM TUBE TOP SCH (19:00)
[2018-04-17] MEDS: Metoprolol Succinate 25 mg XL Tab PO SCH (09:34)
[2018-04-17] MEDS: Bacitracin Ointment 30 GM TUBE TOP SCH ×2 (09:40→17:58)
[2018-04-17 15:37] VITALS: BP 144/75; PULSE 78; TEMP 97.7; O2SAT 97
--- NOTE | 2018-04-17 16:24 | CP.PCM.PN ---
Subjective - Date & Time of Evaluation Date of Evaluation: 04/17/18 Time of Evaluation: 16:21 - Subjective Subjective: Cardiology Progress Note Asif Galan, PGY1 note for Dr. Richards Patient seen and examined at bedside. Offers no complaints. Explained to patient need of outpatient stress test but refuses followup. Explained risks to patient. Will be discharged today. Objective - Vital Signs/Intake and Output Vital Signs (last 24 hours): Temp Pulse Resp BP Pulse Ox 97.7 F 78 20 144/75 97 04/17/18 15:36 04/17/18 15:36 04/17/18 15:36 04/17/18 15:36 04/17/18 15:36 Intake and Output: 04/17/18 04/17/18 06:59 18:59 Intake Total 600 Output Total 550 Balance 50 - Medications Medications: Current Medications Aspirin (Ecotrin) 81 mg PO DAILY [facility] Last Admin: 04/17/18 09:33 Dose: 81 mg Bacitracin (Bacitracin) 0 gm TOP BID [facility] Last Admin: 04/17/18 09:40 Dose: 1 applic Clopidogrel Bisulfate (Plavix) 75 mg PO DAILY [facility] Last Admin: 04/17/18 09:33 Dose: 75 mg Enalapril Maleate (Vasotec) 20 mg PO BID [facility] Last Admin: 04/17/18 09:34 Dose: 20 mg Famotidine (Pepcid) 20 mg PO DAILY [facility] Last Admin: 04/17/18 09:34 Dose: 20 mg Metoprolol Succinate (Toprol Xl) 25 mg PO DAILY [facility] Last Admin: 04/17/18 09:34 Dose: 25 mg Nitroglycerin (Nitrostat Sl Tab) 0.4 mg SL Q5M PRN PRN Reason: Pain, moderate (4-7) Rosuvastatin Calcium (Crestor) 10 mg PO [facility] Last Admin: 04/16/18 22:11 Dose: 10 mg - Labs Labs: 04/15/18 08:16 04/15/18 08:16 PT 12.8 SECONDS (9.7-12.2) H 04/10/18 14:52 INR 1.2 04/10/18 14:52 APTT 35 SECONDS (21-34) H 04/10/18 14:52 - Constitutional Appears: No Acute Distress - Head Exam Head Exam: ATRAUMATIC, NORMAL INSPECTION - Eye Exam Eye Exam: EOMI Pupil Exam: PERRL - ENT Exam ENT Exam: Mucous Membranes Moist - Respiratory Exam Respiratory Exam: Clear to Ausculation Bilateral. absent: Respiratory Distress - Cardiovascular Exam Cardiovascular Exam: REGULAR RHYTHM, +S1, +S2 - GI/Abdominal Exam GI & Abdominal Exam: Soft, Normal Bowel Sounds. absent: Guarding, Rigid - Extremities Exam Extremities Exam: Normal Inspection. absent: Calf Tenderness - Neurological Exam Neurological Exam: Alert, Oriented x3 - Skin Skin Exam: Normal Color, Warm Assessment and Plan - Assessment and Plan (Free Text) Assessment: This is a 72 year old male with PMH of HTN, BPH, and [place] presenting to hospital with STEMI s/p stent placement in RCA on 04/10 after being found to have 100% occlusion of the RCA. Will be discharged today Plan: STEMI s/p RCA stent placement -explained need for outpatient stress test, however patient is reluctant to follow up -drug eluding stent placed on 04/10 -continue plavix 75mg -continue aspirin 81mg -continue statin Further recommendations per Dr. Richards
--- NOTE | 2018-04-18 16:22 | CP.PCM.DIS ---
Provider - Provider Date of Admission: 04/10/18 14:55 Attending physician: Gerald Richards MD Primary care physician: PMD: Dr. Adi Soriano Time Spent in preparation of Discharge (in minutes): 35 Hospital Course - Lab Results Lab Results: Micro Results 04/11/18 16:31 Nose MRSA Culture - Final MRSA NOT DETECTED 04/10/18 19:01 Naris MRSA Culture (Admit) - Final MRSA NOT DETECTED Most Recent Lab Values WBC 10.3 K/uL (4.8-10.8) 04/15/18 08:16 RBC 4.35 Mil/uL (4.40-5.90) L 04/15/18 08:16 Hgb 13.9 g/dL (12.0-18.0) 04/15/18 08:16 Hct 39.6 % (35.0-51.0) 04/15/18 08:16 MCV 90.9 fL (80.0-94.0) 04/15/18 08:16 MCH 32.0 pg (27.0-31.0) H 04/15/18 08:16 MCHC 35.2 g/dL (33.0-37.0) 04/15/18 08:16 RDW 13.8 % (11.5-14.5) 04/15/18 08:16 Plt Count 171 K/uL (130-400) 04/15/18 08:16 MPV 7.9 fL (7.2-11.7) 04/15/18 08:16 Neut % (Auto) 68.5 % (50.0-75.0) 04/15/18 08:16 Lymph % (Auto) 14.3 % (20.0-40.0) L 04/15/18 08:16 [place] % (Auto) 11.0 % (0.0-10.0) H 04/15/18 08:16 Eos % (Auto) 5.3 % (0.0-4.0) H 04/15/18 08:16 Baso % (Auto) 0.9 % (0.0-2.0) 04/15/18 08:16 Neut # (Auto) 7.0 K/uL (1.8-7.0) 04/15/18 08:16 Lymph # (Auto) 1.5 K/uL (1.0-4.3) 04/15/18 08:16 [place] # (Auto) 1.1 K/uL (0.0-0.8) H 04/15/18 08:16 Eos # (Auto) 0.5 K/uL (0.0-0.7) 04/15/18 08:16 Baso # (Auto) 0.1 K/uL (0.0-0.2) 04/15/18 08:16 Neutrophils % (Manual) 79 % (50-75) H 04/11/18 06:17 Band Neutrophils % 1 % (0-2) 04/11/18 06:17 Lymphocytes % (Manual) 10 % (20-40) L 04/11/18 06:17 Monocytes % (Manual) 10 % (0-10) 04/11/18 06:17 Platelet Estimate Decreased (NORMAL) L 04/11/18 06:17 Ovalocytes Slight 04/11/18 06:17 Karis Cells Slight 04/11/18 06:17 PT 12.8 SECONDS (9.7-12.2) H 04/10/18 14:52 INR 1.2 04/10/18 14:52 APTT 35 SECONDS (21-34) H 04/10/18 14:52 Sodium 142 mmol/L (132-148) 04/15/18 08:16 Potassium 3.6 mmol/L (3.6-5.2) 04/15/18 08:16 Chloride 105 mmol/L (98-107) 04/15/18 08:16 Carbon Dioxide 28 mmol/L (22-30) 04/15/18 08:16 Anion Gap 13 (10-20) 04/15/18 08:16 BUN 17 mg/dL (9-20) 04/15/18 08:16 Creatinine 0.8 mg/dL (0.8-1.5) 04/15/18 08:16 Est GFR ( Amer) > 60 04/15/18 08:16 Est GFR (Non-Af Amer) > 60 04/15/18 08:16 Random Glucose 112 mg/dL (75-110) H 04/15/18 08:16 Calcium 8.8 mg/dl (8.6-10.4) 04/15/18 08:16 Phosphorus 3.3 mg/dL (2.5-4.5) 04/15/18 08:16 Magnesium 1.8 mg/dL (1.6-2.3) 04/15/18 08:16 Total Bilirubin 1.2 mg/dL (0.2-1.3) 04/15/18 08:16 AST 18 U/L (17-59) 04/15/18 08:16 ALT 29 U/L (21-72) 04/15/18 08:16 Alkaline Phosphatase 71 U/L (38-126) 04/15/18 08:16 Total Creatine Kinase 718 U/L (55-170) H 04/10/18 17:48 CK-MB (Mass) 69.8 ng/mL (0.0-3.38) H 04/10/18 17:48 Troponin I 32.0000 ng/mL (0.00-0.120) H* 04/10/18 17:48 Total Protein 6.1 g/dL (6.3-8.3) L 04/15/18 08:16 Albumin 3.5 g/dL (3.5-5.0) 04/15/18 08:16 Globulin 2.6 gm/dL (2.2-3.9) 04/15/18 08:16 Albumin/Globulin Ratio 1.3 (1.0-2.1) 04/15/18 08:16 Urine Color Straw (YELLOW) 04/10/18 15:31 Urine Clarity Clear (Clear) 04/10/18 15:31 Urine pH 7.0 (5.0-8.0) 04/10/18 15:31 Ur Specific [place] 1.008 (1.003-1.030) 04/10/18 15:31 Urine Protein Negative mg/dL (NEGATIVE) 04/10/18 15:31 Urine Glucose (UA) Normal mg/dL (Normal) 04/10/18 15:31 Urine Ketones 1+ mg/dL (NEGATIVE) H 04/10/18 15:31 Urine Blood Negative (NEGATIVE) 04/10/18 15:31 Urine Nitrate Negative (NEGATIVE) 04/10/18 15:31 Urine Bilirubin Negative (NEGATIVE) 04/10/18 15:31 Urine Urobilinogen Normal mg/dL (0.2-1.0) 04/10/18 15:31 Ur Leukocyte Esterase Neg [place]/uL (Negative) 04/10/18 15:31 Urine RBC (Auto) < 1 /hpf (0-3) 04/10/18 15:31 Blood Type O POSITIVE 04/10/18 14:52 Antibody Screen Negative 04/10/18 14:52 - Hospital Course Hospital Course: 72 year old male with a PMH of STEMI and HTN presented to the ER with a complaint of chest pain that began while he was getting his haircut on 04/10. Patient left the [employer] shop and walked 4 blocks to his house where he took 8-10 81mg aspirin. The pain persisted so he went down and told people outside who called EMS. Patient was placed on a monitor by EMS and found to have an STEMI on his EKG showing ST elevation at leads 2, 3 and aVL with reciprocal at 2,3, 4 consistent with inferior wall OR. Code heart called. Patient was taken to cardiac pathology laboratory technologist by Dr. Richards and found to have 100% occlusion of right coronary artery. Drug eluting stent was placed, with alevism of flow. Patient was sent to ICU for close observation and put on ASA, plavix, metoprolol, enalapril and rouvastatin. Patient had no postoperative complications. Patient advised to get outpatient stress test, but patient states he is reluctant to follow up. - Date & Time of H&P Date of H&P: 04/17/18 Time of H&P: 05:00 Discharge Exam - Head Exam Head Exam: ATRAUMATIC, NORMAL INSPECTION - Eye Exam Eye Exam: EOMI Pupil Exam: PERRL - ENT Exam ENT Exam: Mucous Membranes Moist - Respiratory Exam Respiratory Exam: absent: Respiratory Distress Additional comments: CTA B/L - Cardiovascular Exam Cardiovascular Exam: REGULAR RHYTHM, +S1, +S2 - GI/Abdominal Exam GI & Abdominal Exam: Normal Bowel Sounds. absent: Distended, Firm - Extremities Exam Extremities exam: normal inspection, pedal pulses present - Neurological Exam Neurological exam: Alert, Oriented x3 - Skin Skin Exam: Normal Color, Warm Discharge Plan - Follow Up Plan Condition: CRITICAL Disposition: HOME/ ROUTINE Instructions: Heart Healthy Diet, Cardiac Catheterization (DC), Heart Attack (DC), Coronary Stenting (DC) Additional Instructions: Please follow up with a primary care doctor within 3-5 days of discharge. Please follow up with your equipment detailer within 3-5 days of discharge. Please resume your home medications, including plavix, aspirin, lipitor and coreg Please return to the ED for any worsening of symptoms Please schedule outpatient cardiac stress test as soon as possible Referrals: Gerald Richadrs MD [Staff Provider] -
== END 2018-04-17 18:20 | disposition home or self-care (01) | DRG 247 ==
LOC: C.ER 14:36 → C.9E 14:55 → C.9I 15:19 → C.6T 04-11 14:54
PROVIDERS: ADMIT Internal Medicine Interventional Cardiology; ATTEND Internal Medicine Interventional Cardiology
PROC: 027034Z Dilation of Coronary Artery, One Artery with Drug-eluting Intraluminal Device, Percutaneous Approach (ICD-10-PCS; principal; 2018-04-10)
PROC: 4A023N7 Measurement of Cardiac Sampling and Pressure, Left Heart, Percutaneous Approach (ICD-10-PCS; 2018-04-10)
PROC: B211YZZ Fluoroscopy of Multiple Coronary Arteries using Other Contrast (ICD-10-PCS; 2018-04-10)
PROC: B215YZZ Fluoroscopy of Left Heart using Other Contrast (ICD-10-PCS; 2018-04-10)
DX: I21.19 ST elevation (STEMI) myocardial infarction involving other coronary artery of inferior wall (principal); I25.2 Old myocardial infarction; I10 Essential (primary) hypertension; E78.5 Hyperlipidemia, unspecified; N40.0 Benign prostatic hyperplasia without lower urinary tract symptoms; Z87.891 Personal history of nicotine dependence; H91.93 Unspecified hearing loss, bilateral